=== PATIENT | female | born 1935 | race Caucasian/White ===

== ENCOUNTER 2016-11-29 15:08 | Observation (INO) | payer OTHER ==
--- NOTE | ~2016-11-29 | DS ---
Unit #: [id number] #: [id number] Patient: SIMONE STEEL [id number] [address] [address] [id number] I MR#: [id number] NAME: SIMONE STEEL. ROOM: 313 Age: 80 Sex: F Admission Date: 11/29/2016 : 1935 Discharge Date: Attending Physician: Marie Stanley M.D. Primary Care Physician: Michoacano Mccarthy M.D. DISCHARGE SUMMARY DISCHARGE DIAGNOSES 1. Toxic metabolic encephalopathy. 2. Escherichia coli urinary infection. 3. Sepsis. 4. Poor p.o. intake. 5. Hypertension. 6. Dementia. 7. Hyperlipidemia. 8. Osteoporosis. 9. Arthritis. 10. History of neuropathy. CONSULTATION None. PROCEDURE None. DIAGNOSTIC STUDIES LABORATORY: Urine culture is growing E. coli. Blood cultures negative. WBC 7.6, hemoglobin 13.9, platelets 250,000. Sodium 141, potassium 3.8, creatinine 0.9. Lactic acid 2.1. Urine drug screen negative. CARDIOVASCULAR: EKG: Normal sinus rhythm. ALLERGIES None. DISCHARGE MEDICATIONS 1. Norvasc 10 mg p.o. daily. 2. Aspirin 81 daily. 3. Galantamine 8 mg p.o. b.i.d. 4. Levaquin 500 p.o. daily. 5. Vitamin B12 at 500 mcg p.o. daily. HOSPITALIZATION COURSE An 80 year old admitted because of change in mental status. Change in mental status, secondary to toxic metabolic encephalopathy from urinary tract infection. Currently, she is more arousable. Mildly confused. She does have dementia. Continue with supportive care. Urinary tract infection with E. coli: The patient received IV Rocephin. Cultures are growing E. coli sensitive to Levaquin. The patient will be Unit #: [id number] #: [id number] Patient: SIMONE STEEL discharged on Levaquin for five more days p.o. Poor p.o. intake: Most likely secondary to toxic metabolic encephalopathy. The patient needs encouragement of p.o. intake. The patient should be provided with Ensure three times daily for nutritional supplements. History of dementia: Continue supportive care. DISPOSITION The patient will be discharged to rehab. Dictated by... Leobardo Lemons TD: 12/01/2016 17:11 JOB #: [id number] DISCHARGE SUMMARY X Marie Stanley MD X DISCHARGE SUMMARY
--- NOTE | ~2016-11-29 | EKG ---
PATIENT: SIMONE STEEL UNIT #: [id number] Ventricular Rate: 85 BPM Atrial Rate: 85 BPM P-R Interval: 154 ms QRS Duration: 70 ms Q-T Interval: 420 ms QTC Calculation(Bezet): 499 ms P [place]: 57 degrees Calculated R [place]: -52 degrees Calculated T [place]: -83 degrees Diagnosis Line: Normal sinus rhythm Diagnosis Line: Left axis deviation Diagnosis Line: ST and T wave abnormality, consider inferior Diagnosis Line: ischemia Diagnosis Line: ST and T wave abnormality, consider anterolateral Diagnosis Line: ischemia Diagnosis Line: Abnormal ECG Diagnosis Line: When compared with ECG of 03-MAY-2012 13:05, Diagnosis Line: Significant changes have occurred Diagnosis Line: Confirmed by MARCI PEDERSEN MD ([id number]) on 11/29/2016 Diagnosis Line: 11:26:23 PM INTERPRETING MD: SLAVA LIAO
--- NOTE | ~2016-11-29 | CR72 ---
[facility] A Service of [facility] & [facility] RADIOLOGY TEXT RESULTS PATIENT: SIMONE STEEL LOCATION: [facility] : 34 UNIT #: [id number] AGE: [address]: Kermit Rocha MD SEX: F ORDER DR: [id number] [facility] [address] [place], [place] [address] [id number] E MR#: [id number] Acc #: [id number] NAME: SIMONE STEEL : 1935 SEX: F STUDY DATE/TIME: 11/29/2016 14:54 UNIT: [facility] ROOM: STUDY DESCRIPTION: CR Chest Single View Portable Attending Physician: Kermit Rocha M.D. Ordering Physician: Kermit Rocha M.D. Primary Care Physician: Michoacano Mccarthy M.D. MEDICAL IMAGING REPORT This report is preliminary unless electronic signature is present EXAM AP portable chest, 11/29/2016. INDICATIONS Altered mental status for 3 days. Lethargy. FINDINGS Single portable AP view of the chest compared to 05/03/2012. The heart and mediastinal contours are normal. There is background COPD. There are some calcified granulomas in the right upper lobe. No pleural effusion. IMPRESSION No acute cardiopulmonary findings. Dictated by... Loyd Montiel M.D. THIS IS AN ELECTRONICALLY VERIFIED REPORT Loyd Montiel M.D. at 11/29/2016 6:42 PM YAZAN/hortencia TD: 11/29/2016 16:54 JOB #: [id number] MEDICAL IMAGING REPORT COPY
--- NOTE | ~2016-11-29 | HP ---
Unit #: [id number] #: [id number] Patient: SIMONE STEEL [id number] [address] [place], [place] [address] [id number] I MR#: [id number] NAME: SIMONE STEEL. ROOM: 70004 Age: 80 Sex: F Admission Date: 11/29/2016 : 1935 Attending Physician: Joann May M.D. Primary Care Physician: Michoacano Mccarthy M.D. HISTORY AND PHYSICAL CHIEF COMPLAINT Altered mental status. HISTORY OF PRESENT ILLNESS The patient is an 80-year-old female with a history of hypertension, hyperlipidemia and osteoporosis, brought to the emergency room with the altered mental status. The patient is a poor historian and the history is obtained by speaking to the ER physician and the patient's daughter at the bedside. The patient has decreased oral intake for the last mbfyp-wp-fomw days associated with the disorientation. The patient has been disoriented and confused and agitated for the last oznsw-vl-vnce days. The patient denies any fever, chills or any urinary complaints and further history is limited because the patient is not following the commands and not answering the questions. PAST MEDICAL HISTORY Hypertension, hyperlipidemia, osteoporosis, arthritis, neuropathy, questionable dementia. PAST SURGICAL HISTORY Rotator cuff surgery, back surgery, left knee replacement, right knee replacement, hysterectomy. ALLERGIES No known drug allergies. HOME MEDICATIONS She is on the gabapentin, galantamine, Celexa, vitamin, aspirin, Norvasc, risperidone. SOCIAL HISTORY Denies tobacco, alcohol or any illicit drug abuse; she is and has four children and stays at home with her . REVIEW OF SYMPTOMS Unable to obtain due to patient's altered mental status. FAMILY HISTORY Father was an alcoholic. Mother is 95, living and healthy. PHYSICAL EXAMINATION GENERAL APPEARANCE: On examination the patient is lying on a bed not in acute distress. Unit #: [id number] #: [id number] Patient: SIMONE STEEL VITAL SIGNS: Temperature 99.5, pulse 70, respiratory rate 22, blood pressure 102/90, sating 99% at room air. HEENT: Head atraumatic, normocephalic. Pupils equal, round and reacting to light and accommodation. Extraocular movements are intact. Dry mucous membranes. NECK: Supple. No JVD. LUNGS: Decreased air entry at the bases. No rhonchi. No wheezing. HEART: Regular rate and rhythm. ABDOMEN: Soft, positive bowel sounds. EXTREMITIES: No cyanosis. No clubbing. NEUROLOGIC: Awake and confused, not following commands and no gross focal motor deficit. PSYCHIATRIC: Unable to assess. DIAGNOSTIC STUDIES LABORATORY DATA: Glucose 146, BUN 23, creatinine 1.1, sodium 138, potassium 3.5, chloride 105, bicarb 24 and calcium 9.1, total protein 7.1, total bilirubin 1.3, AST 21, ALT 16, alkaline phosphatase 35 and lactic acid is 2.1, INR is 1, WBC 6.8, hemoglobin 14.2, hematocrit 41.7, platelets 252. Urine tox is negative. UA shows 2+ leukocyte esterase, 1+ protein and 25 to 50 urine RBCs and 50 to 100 urine WBCs and 4+ bacteria. The repeat lactic acid is again 2.1. CARDIOVASCULAR: The EKG shows a normal sinus rhythm with a left axis deviation and the nonspecific ST and T changes. IMAGING: The CT of the head shows no acute intracranial findings, atrophy and small vessel changes, diffuse mucosal thickening in the paranasal sinus. Please correlate for any evidence of sinusitis. Chest x-ray shows no acute cardiopulmonary findings. ASSESSMENT 1. Altered mental status. 2. Urinary tract infection. 3. Sepsis. 4. Poor oral intake. 5. Hypertension. PLAN 1. Plan to admit to the observation with the telemetry. 2. Continue with the IV antibiotic with the Rocephin. 3. Follow with the sepsis protocol. 4. Follow with the urine culture. 5. Repeat the labs again in the morning. 6. Further recommendations will follow as more lab results are available. Dictated by Leobardo Borjas Unit #: [id number] #: [id number] Patient: SIMONE STEEL TD: 11/29/2016 20:18 JOB #: [id number] HISTORY AND PHYSICAL X X HISTORY AND PHYSICAL
--- NOTE | ~2016-11-29 | CT71 ---
[facility] A Service of [facility] RADIOLOGY TEXT RESULTS PATIENT: SIMONE STEEL LOCATION: [facility] : 34 UNIT #: [id number] AGE: [address]: KHUSHI COLEY MD SEX: F ORDER DR: [id number] [id number] [facility]. [place], [place] [address] [id number] E MR#: [id number] Acc #: [id number] NAME: SIMONE STEEL. : 1935 SEX: F STUDY DATE/TIME: 11/29/2016 15:44 UNIT: [facility] ROOM: STUDY DESCRIPTION: CT Head Wo Contrast Attending Physician: Kermit Rocha M.D. Ordering Physician: Kermit Rocha M.D. Primary Care Physician: Michoacano Mccarthy M.D. MEDICAL IMAGING REPORT This report is preliminary unless electronic signature is present EXAM CT head without contrast. DATE OF EXAM 11/29/2016 INDICATION Fever. Confusion. Urinary tract infection. TECHNIQUE CT of the head without contrast. NOTE: This CT exam was performed with one or more of the following radiation dose reduction techniques: automatic exposure control, adjustment of mA and/or kV according to patient size, and iterative reconstruction. COMPARISON MRI brain dated 05/26/2012. FINDINGS There is no acute intracranial hemorrhage, mass lesion, or acute infarct. There is generalized global cerebral atrophy and chronic small vessel changes. No extraaxial collections. No acute osseous abnormalities. There is diffuse mucosal thickening within the ethmoidal air cells and the sphenoid sinuses. There is a small left mastoid effusion. IMPRESSION 1. No acute intracranial findings. 2. Atrophy and chronic small vessel changes. 3. Diffuse mucosal thickening in the paranasal sinuses. Please correlate for any evidence of sinusitis. [facility] A Service of [facility] RADIOLOGY TEXT RESULTS PATIENT: SIMONE STEEL LOCATION: [facility] : 34 UNIT #: [id number] AGE: [address]: KHUSHI COLEY MD SEX: F ORDER DR: Dictated by... Loyd Montiel M.D. THIS IS AN ELECTRONICALLY VERIFIED REPORT Loyd Montiel M.D. at 11/29/2016 8:29 PM YAZAN/saira TD: 11/29/2016 18:52 JOB #: [id number] MEDICAL IMAGING REPORT COPY
[2016-11-29 14:38] LABS: BASOPHIL# 0.1 X10e3 (0-0.3); BASOPHIL% 1.2 % (0-2.5); EOSINOPHIL# 0.2 X10e3 (0-0.7); EOSINOPHIL% 2.6 % (0.0-7.0); HEMATOCRIT 41.7 % (35.0-45.0); HEMOGLOBIN 14.2 gm/dL (12.0-16.0); LYMPHOCYTE# 1.3 X10e3 (1.0-3.5); LYMPHOCYTE% 18.8 % (17.0-45.0); MEAN CELL VOLUME 88.7 FL (83-96); MEAN CORPUSCULAR HEMOGLOBIN 30.2 PG (28-34); MEAN CORPUSCULAR HGB CONC 34.1 g/dL (30-36); MEAN PLATELET VOLUME 9.4 FL (6.5-11.5); MONOCYTE# 0.7 X10e3 (0-1.0); MONOCYTE% 10.1 % (3.0-12.0); NEUTROPHIL# 4.6 X10e3 (1.5-7.1); NEUTROPHIL% 67.3 % (40-75); PLATELET COUNT 252 X10e3 (140-420); RED CELL DISTRIBUTION WIDTH 14.9 % (11.0-15.5); URINE SOURCE CLEAN CATCH; WHITE BLOOD COUNT 6.8 X10e3 (4.0-10.5)
[2016-11-29 14:44] LABS: DIFF IND NO; URINE APPEARANCE CLOUDY; URINE BILIRUBIN NEG (NEG); URINE BLOOD 2+ (NEG); URINE COLOR DK YELLOW; URINE GLUCOSE NEG (NEG); URINE KETONE 1+ (NEG); URINE LEUKOCYTE ESTERASE 2+ (NEG); URINE NITRATE NEG (NEG); URINE PH 5.5 (5-8); URINE PROTEIN 1+ (NEG); URINE SPECIFIC GRAVITY 1.024 (1.003-1.035)
[2016-11-29 14:45] LABS: POC - CKMB 1.7 ng/mL (0.0-7.9); POC - TROPONIN <0.05 ng/mL (<=0.05)
[2016-11-29 14:46] LABS: CULTURE INDICATED? YES; URBCS1 AUWI 25-50 /[HPF] (0-2); URINE BACTERIA AUWI 4+ (NEGATIVE); URINE SQUAMOUS EPITHELIAL CELL NONE SEEN /[HPF]; UWBCS1 AUWI 50-100 (0-5)
[2016-11-29 14:57] LABS: ALBUMIN SERUM 4.4 g/dL (3.5-5.0); BILIRUBIN, DIRECT 0.3 mg/dL (0.0-0.2); BILIRUBIN,TOTAL 1.3 mg/dL (0.2-2.0); BUN/CREATININE RATIO 20.9; CALCIUM SERUM 9.1 mg/dL (8.4-10.2); CREATININE SERUM 1.1 mg/dL (0.6-1.4); GLOM FILT RATE Estimated 50.7 mL/min (>60); POTASSIUM 3.5 mmol/L (3.5-5.1); PROTEIN TOTAL SERUM 7.1 g/dL (6.0-8.3)
[2016-11-29 15:03] LABS: AMPHETAMINE NEG (NEG); BARBITURATES NEG (NEG); BENZODIAZEPINES NEG (NEG); COCAINE NEG (NEG); MARIJUANA NEG (NEG); OPIATES NEG (NEG); TRICYCLIC ANTIDEPRESSANTS NEG (NEG); U METHADONE NEG (NEG)
[~2016-11-29 15:08] MED LIST: ARIXTRA2.5 MG/0.5 INJ; ASPIRIN PO; ASPIRIN81 M1 PO; BONIVA150 MG PO; CALTRATE 600+D PO; DESOWEN60 GM TOP; DITROPAN XL PO; DITROPAN5 MG PO; EC-NAPROSYN500 MG; FLEXERIL10 MG PO; GABAPENTIN300 MG PO; GLUCOSAMINE 1500 MG; GLUCOSAMINE 750 MG; HYDROCHLOROTHIA25 MG PO; LEVOFLOXACIN500 MG PO; LIPITOR; MOBIC PO; MOBIC15 MG PO; MULTI-VITAMIN1 TAB; MULTIVITAMIN1 UDCAP PO; NEURONTIN PO; NORCO 5/325 TAB1 TAB PO; NORVASC10 MG PO; OMEPRAZOLE20 M1 PO; PERCOCET PO; PREMARIN; PREVACID; PRILOSEC PO; SIMVASTATIN40 MG PO; TOPROL XL 50 MG50 M1 PO; TOPROL XL PO; TRIDESILON 0.0515 G2 EXT; VICODIN; ZOCOR PO; ZOFRAN8 MG PO; [UNRECOGNIZED DRUG - OTHER]
[2016-11-29] MEDS ORDERED: RISPERDAL0.5 MG PO (17:51)
[2016-11-29] MEDS ORDERED: NORVASC10 MG PO (17:51)
[2016-11-29] MEDS ORDERED: CELEXA10 M1 PO (17:52)
[2016-11-29] MEDS ORDERED: B-12500 MCG PO (17:52)
[2016-11-29] MEDS ORDERED: ASPIRIN EC81 M1 PO (17:52)
[2016-11-29] MEDS ORDERED: GABAPENTIN300 MG PO (17:53)
[2016-11-29] MEDS ORDERED: GALANTAMINE HBR8 MG PO (17:53)
[2016-11-30 04:00] LABS: BASOPHIL% 0.5 % (0-2.5); EOSINOPHIL# 0.2 X10e3 (0-0.7); HEMATOCRIT 41.1 % (35.0-45.0); HEMOGLOBIN 13.9 gm/dL (12.0-16.0); LYMPHOCYTE# 1.3 X10e3 (1.0-3.5); LYMPHOCYTE% 17.4 % (17.0-45.0); MEAN CELL VOLUME 89.9 FL (83-96); MEAN CORPUSCULAR HEMOGLOBIN 30.4 PG (28-34); MEAN CORPUSCULAR HGB CONC 33.9 g/dL (30-36); MEAN PLATELET VOLUME 9.1 FL (6.5-11.5); MONOCYTE# 0.7 X10e3 (0-1.0); MONOCYTE% 9.8 % (3.0-12.0); NEUTROPHIL# 5.4 X10e3 (1.5-7.1); NEUTROPHIL% 70.3 % (40-75); PLATELET COUNT 250 X10e3 (140-420); RED BLOOD COUNT 4.57 X10e (3.90-5.30); RED CELL DISTRIBUTION WIDTH 14.5 % (11.0-15.5); WHITE BLOOD COUNT 7.6 X10e3 (4.0-10.5)
[2016-11-30 04:23] LABS: BLOOD UREA NITROGEN 19 mg/dL (9-23); BUN/CREATININE RATIO 21.11; CALCIUM SERUM 8.9 mg/dL (8.4-10.2); CARBON DIOXIDE 25 mmol/L (22-31); CHLORIDE 106 mmol/L (100-111); CREATININE SERUM 0.9 mg/dL (0.6-1.4); GLOM FILT RATE Estimated ABOVE60 mL/min (>60); GLUCOSE FASTING 105 mg/dL (70-110); POTASSIUM 3.8 mmol/L (3.5-5.1); SODIUM 141 mmol/L (135-145)
[2016-11-30 04:26] LABS: DIFF IND NO
== END 2016-12-01 20:30 ==
LOC: CED 15:08 → CEDOF 19:14 → C3A PCU 11-30 14:05
PROVIDERS: Emergency Medicine; Internal Medicine
DX: G92 Toxic encephalopathy (principal); N39.0 Urinary tract infection, site not specified; B96.20 Unspecified Escherichia coli [E. coli] as the cause of diseases classified elsewhere; A41.51 Sepsis due to Escherichia coli [E. coli]; I10 Essential (primary) hypertension; F03.90 Unspecified dementia, unspecified severity, without behavioral disturbance, psychotic disturbance, mood disturbance, and anxiety; E78.5 Hyperlipidemia, unspecified; M81.0 Age-related osteoporosis without current pathological fracture; M19.90 Unspecified osteoarthritis, unspecified site; Z79.82 Long term (current) use of aspirin; Z81.1 Family history of alcohol abuse and dependence
CPT/HCPCS: 36415; 51701; 70450; 71010; 80048; 80076; 80307; 81003; 82553; 83605; 84484; 85025; 87040; 87086; 87088; 87186; 93005; 96361; 96365; 96372; 96375; 97163; 97167; 97530; 99285; G0378; G8978-GP; G8979-GP; G8987-GO; G8988-GO; J0696; J1650

== ENCOUNTER 2017-05-27 12:24 | Emergency (ER) | payer OTHER ==
[~2017-05-27] VITALS: Ht 144.8 cm; Wt 56.2 kg
--- NOTE | ~2017-05-27 | CR72 ---
[facility] A Service of [facility] & [facility] RADIOLOGY TEXT RESULTS PATIENT: SIMONE STEEL LOCATION: [facility] : 34 UNIT #: [id number] AGE: [address]: Tremayne Dorsey MD SEX: F ORDER DR: [id number] [facility] [address] [place], [place] [address] [id number] E MR#: [id number] Acc #: [id number] NAME: SIMONE STEEL : 1935 SEX: F STUDY DATE/TIME: 05/27/2017 12:54 UNIT: [facility] ROOM: STUDY DESCRIPTION: CR Chest Single View Portable Attending Physician: Tremayne Dorsey M.D. Ordering Physician: Mateo Demarco M.D. Primary Care Physician: No Primary Care Physician MEDICAL IMAGING REPORT This report is preliminary unless electronic signature is present EXAM Portable chest, 05/27/2017. INDICATIONS Near-syncope today. Hypertension. Shortness of air. FINDINGS AP portable chest compared with 11/29/2016. Cardiac and mediastinal contours are within normal limits. The lungs are clear except for granulomatous calcifications. No pneumothorax is seen. Degenerative disease noted in the spine and right shoulder. IMPRESSION No active disease. Dictated by... Kermit Stratton Jr., M.D. THIS IS AN ELECTRONICALLY VERIFIED REPORT Kermit Stratton Jr., M.D. at 05/29/2017 2:27 PM FORTUNATO/saira TD: 05/27/2017 18:49 JOB #: [id number] MEDICAL IMAGING REPORT Page 1 of 1 COPY
--- NOTE | ~2017-05-27 | EKG ---
PATIENT: SIMONE STEEL UNIT #: [id number] Ventricular Rate: 69 BPM Atrial Rate: 69 BPM P-R Interval: 162 ms QRS Duration: 80 ms Q-T Interval: 408 ms QTC Calculation(Bezet): 437 ms P [place]: 52 degrees Calculated R [place]: -27 degrees Calculated T [place]: 75 degrees Diagnosis Line: Normal sinus rhythm Diagnosis Line: Nonspecific T wave abnormality Diagnosis Line: Abnormal ECG Diagnosis Line: When compared with ECG of 29-NOV-2016 14:35, Diagnosis Line: ST no longer depressed in Inferior leads Diagnosis Line: T wave inversion no longer evident in Inferior Diagnosis Line: leads Diagnosis Line: T wave inversion no longer evident in Diagnosis Line: Anterolateral leads Diagnosis Line: QT has shortened Diagnosis Line: Confirmed by SLAVA LIAO, MARCI ([id number]) on 05/28/2017 Diagnosis Line: 7:08:17 PM INTERPRETING MD: SLAVA LIAO
[~2017-05-27 12:24] MED LIST changes: +ASPIRIN EC81 M1 PO; +B-12500 MCG PO; +CELEXA10 M1 PO; +GALANTAMINE HBR8 MG PO; +RISPERDAL0.5 MG PO
[2017-05-27 13:46] LABS: BASOPHIL% 0.5 % (0-2.5); EOSINOPHIL# 0.1 X10e3 (0-0.7); EOSINOPHIL% 0.7 % (0.0-7.0); HEMOGLOBIN 12.1 gm/dL (12.0-16.0); LYMPHOCYTE# 0.4 X10e3 (1.0-3.5); LYMPHOCYTE% 4.6 % (17.0-45.0); MEAN CELL VOLUME 89.6 FL (83-96); MEAN CORPUSCULAR HGB CONC 33.5 g/dL (30-36); MONOCYTE# 0.8 X10e3 (0-1.0); NEUTROPHIL# 6.8 X10e3 (1.5-7.1); NEUTROPHIL% 84.2 % (40-75); PLATELET COUNT 242 X10e3 (140-420); RED BLOOD COUNT 4.02 X10e (3.90-5.30); RED CELL DISTRIBUTION WIDTH 14.5 % (11.0-15.5); WHITE BLOOD COUNT 8.1 X10e3 (4.0-10.5)
[2017-05-27 14:00] LABS: DIFF IND NO
[2017-05-27 14:11] LABS: POC - CKMB <1.0 ng/mL (0.0-7.9); POC - TROPONIN 0.06 ng/mL (<=0.05)
[2017-05-27 14:16] LABS: BILIRUBIN, DIRECT 0.4 mg/dL (0.0-0.2); BILIRUBIN,INDIRECT 1.1 mg/dL (0.0-0.9); BILIRUBIN,TOTAL 1.5 mg/dL (0.2-2.0); BUN/CREATININE RATIO 12.72; CALCIUM SERUM 9.2 mg/dL (8.4-10.2); CREATININE SERUM 1.1 mg/dL (0.6-1.4); GLOM FILT RATE Estimated 46.7 mL/min (>60); POTASSIUM 4.6 mmol/L (3.5-5.1); PROTEIN TOTAL SERUM 6.6 g/dL (6.0-8.3)
[2017-05-27 14:56] LABS: URINE SOURCE CATH
[2017-05-27 15:03] LABS: URINE APPEARANCE CLEAR; URINE BILIRUBIN NEG (NEG); URINE BLOOD 1+ (NEG); URINE COLOR YELLOW; URINE GLUCOSE NEG (NEG); URINE KETONE NEG (NEG); URINE LEUKOCYTE ESTERASE 1+ (NEG); URINE NITRATE NEG (NEG); URINE PH 6.5 (5-8); URINE PROTEIN NEG (NEG); URINE SPECIFIC GRAVITY 1.007 (1.003-1.035); URINE UROBILINOGEN 0.2 MG/DL (NEG)
[2017-05-27 15:06] LABS: CULTURE INDICATED? YES; URINE BACTERIA AUWI 4+ (NEGATIVE); URINE SQUAMOUS EPITHELIAL CELL MOD /[HPF]
[2017-05-27 16:40] LABS: POC - CKMB <1.0 ng/mL (0.0-7.9); POC - TROPONIN <0.05 ng/mL (<=0.05)
[2017-05-27 19:07] LABS: POC - CKMB 1.1 ng/mL (0.0-7.9); POC - TROPONIN <0.05 ng/mL (<=0.05)
== END 2017-05-27 19:15 | disposition home or self-care (01) ==
LOC: CED 12:24
PROVIDERS: Emergency Medicine
DX: R55 Syncope and collapse (principal); I10 Essential (primary) hypertension; Z90.710 Acquired absence of both cervix and uterus; Z79.899 Other long term (current) drug therapy; Z79.82 Long term (current) use of aspirin
CPT/HCPCS: 36415; 51701; 71010; 80048; 80076; 81003; 82553; 82947; 84484; 85025; 87086; 87088; 87186; 93005; 96360; 99284

== ENCOUNTER 2017-06-29 01:30 | Inpatient (IN) | payer OTHER ==
[~2017-06-29] VITALS: Ht 152.4 cm; Wt 76.0 kg
--- NOTE | ~2017-06-29 | CR83 ---
[facility] A Service of [facility] & [facility] RADIOLOGY TEXT RESULTS PATIENT: SIMONE STEEL LOCATION: [address] : 34 UNIT #: [id number] AGE: [address]: John Sheriff MD SEX: F ORDER DR: [id number] [id number] [facility]. [place], [place] [address] [id number] I MR#: [id number] Acc #: [id number] NAME: SIMONE STEEL. : 1935 SEX: F STUDY DATE/TIME: 07/01/2017 9:09 UNIT: [facility] ROOM: [facility] STUDY DESCRIPTION: CR ERCP Biliary Duct SI Attending Physician: John Sheriff M.D. Ordering Physician: Juan Zavaleta M.D. Primary Care Physician: No Primary Care Physician MEDICAL IMAGING REPORT This report is preliminary unless electronic signature is present EXAM ERCP biliary duct SI. HISTORY Sepsis, CBD obstruction. Stones removed. Sphincterotomy performed. Stent placed. Fluoroscopy time 1.43 minutes. Twelve fluoroscopic spot images. PROCEDURE Intraoperative fluoroscopy provided for Dr. Zavaleta during ERCP. Initial image shows placement of the endoscope and cannulation of the common bile duct. There is injection of contrast material. The endoscopist notes dilatation of the biliary ducts and stones in the duct. Endoscopist notes performance of sphincterotomy. Balloon catheter used to remove stones from CBD. Stones/debris removed from the CBD. Placement of a stent. Final recorded image shows in mildly prominent intrahepatic bile ducts, and in the mildly prominent extrahepatic common bile duct. The stent extends from the mid common bile duct into second portion duodenum. Please see endoscopist report for full procedural details. The visualized bowel gas pattern appears within normal limits. Degenerative changes in the partially visualized spine. Dictated by... Jose E Nunes M.D. THIS IS AN ELECTRONICALLY VERIFIED REPORT Jose E Nunes M.D. at 07/03/2017 2:31 PM LUCIAN/saira TD: 07/01/2017 16:13 [facility] A Service of [facility] & [facility] RADIOLOGY TEXT RESULTS PATIENT: SIMONE STEEL LOCATION: [address] : 34 UNIT #: [id number] AGE: [address]: John Sheriff MD SEX: F ORDER DR: JOB #: [id number] MEDICAL IMAGING REPORT Page 1 of 1 COPY
--- NOTE | ~2017-06-29 | OR ---
Unit #: [id number] #: [id number] Patient: SIMONE STEEL [id number] [address] [address] [id number] I MR#: [id number] NAME: SIMONE STEEL ROOM: [facility] Date of Procedure: 07/01/2017 Admission Date: 06/29/2017 Surgeon: Atul May M.D. : 1935 Attending Physician: John Sheriff M.D. Primary Care Physician: Rachel Primary Care Physician PROCEDURE OPERATIVE NOTE PROCEDURE Left intrajugular hemodialysis catheter placement with ultrasound guidance. PREOP DIAGNOSIS Acute kidney injury with anuria. POSTOP DIAGNOSIS Acute kidney injury and septic shock. PREMEDICATION None except lidocaine topical. COMPLICATION None. DESCRIPTION OF THE PROCEDURE An informed consent was obtained from the patient's daughter after explaining the benefit and risk of this procedure. Patient was prepped and positioned in a proper way, then she was cleaned with chlorhexidine and then a sterile body drape was applied and then, with the ultrasound guidance, a needle was inserted into the left IJ until blood flow was obtained and then a guidewire was inserted and the needle was removed. Then, the skin and soft tissues were dilated with dilators x2. Then, the catheter was inserted over the guidewire and the guidewire was removed. The catheter was flushed and sutured appropriately, then a clean dressing was applied and a stat chest x-ray confirmed placement with no immediate complication. Dictated by... Atul May M.D. EA/giancarlo TD: 07/01/2017 10:43 JOB #: [id number] Unit #: [id number] #: [id number] Patient: SIMONE STEEL PROCEDURE OPERATIVE NOTE Page 1 of 1 X TAUL JEFFRIES MD X PROCEDURE OPERATIVE NOTE
--- NOTE | ~2017-06-29 | CR72 ---
[facility] A Service of [facility] RADIOLOGY TEXT RESULTS PATIENT: SIMONE STEEL LOCATION: [facility] : 34 UNIT #: [id number] AGE: [address]: John Sheriff MD SEX: F ORDER DR: [id number] [facility] [address] [place], [place] [address] [id number] I MR#: [id number] Acc #: [id number] NAME: SIMONE STEEL. : 1935 SEX: F STUDY DATE/TIME: 07/01/2017 08:48 UNIT: [facility] ROOM: [facility] STUDY DESCRIPTION: CR Chest Single View Portable Attending Physician: John Sheriff M.D. Ordering Physician: Brad May M.D. Primary Care Physician: No Primary Care Physician MEDICAL IMAGING REPORT This report is preliminary unless electronic signature is present EXAM Chest portable, 07/01/2017, 0848 hours. CLINICAL HISTORY 81-year-old woman with shortness of air, weakness and recent fever. Shiley catheter placement today. COMPARISON 06/29/2017 FINDINGS Portable upright chest demonstrates low lung volumes with likely stable heart size. There is perihilar vascular crowding. There is increased density at the right lung base likely combination of pleural effusion and consolidation. Atelectasis is favored over pneumonia although pneumonia cannot be excluded. There is trace blunting of the left costophrenic sulcus. There is a left IJ catheter with tip directed rightward in the mid SVC. There is no pneumothorax. IMPRESSION 1. Low lung volume film with persistent right greater than left pleural effusion and right basilar density. Atelectasis is favored over pneumonia, although, right basilar pneumonia cannot be excluded. 2. Left IJ catheter tip terminates in the SVC directed to the right. There is no pneumothorax. Dictated by... Michelle Varela M.D. [facility] A Service of [facility] RADIOLOGY TEXT RESULTS PATIENT: SIMONE STEEL LOCATION: [facility] : 34 UNIT #: [id number] AGE: [address]: John Sheriff MD SEX: F ORDER DR: THIS IS AN ELECTRONICALLY VERIFIED REPORT Michelle Varela M.D. at 07/02/2017 9:15 AM Michi TD: 07/01/2017 14:48 JOB #: [id number] MEDICAL IMAGING REPORT Page 1 of 1 COPY
--- NOTE | ~2017-06-29 | DS ---
Unit #: [id number] #: [id number] Patient: SIMONE STEEL [id number] [facility] [address] [place], [place] [address] [id number] I MR#: [id number] NAME: SIMONE STEEL. ROOM: [facility] Age: 81 Sex: F Admission Date: 06/29/2017 : 1935 Discharge Date: 07/02/2017 Attending Physician: John Sheriff M.D. Primary Care Physician: Rachel Primary Care Physician DISCHARGE SUMMARY SUMMARY DATE OF July 02, 2017. HOSPITAL COURSE An 81-year-old female was admitted to [facility] and treated for septic shock secondary to enterococcal bacteremia and Escherichia coli UTI. Patient also had a dilated common bile duct and acute pancreatitis. Patient also has history of hypertension, hyperlipidemia, neuropathy, and mild dementia. Patient was also treated for pneumonia. Patient was seen by Dr. Indu May in pulmonary consultation, Dr. Zavaleta, Dr. Varner, and [facility] in consultation as well. Unfortunately, patient's condition deteriorated and she was intubated. After discussing with patient's family, it was decided to make patient comfort care as she was on vasopressors and has also developed acute renal failure. Patient peacefully on July 02, 2017. Dictated by... Leobardo Mahan/maggi TD: 07/07/2017 10:07 JOB #: [id number] DISCHARGE SUMMARY Page 1 of 1 X John Sheriff MD X DISCHARGE SUMMARY
--- NOTE | ~2017-06-29 | OR ---
Unit #: [id number] #: [id number] Patient: SIMONE STEEL [id number] [address] [address] [id number] MR#: [id number] NAME: SIMONE STEEL. ROOM: [facility] Date of Procedure: 07/01/2017 Admission Date: 06/29/2017 Surgeon: Atul May M.D. : 1935 Attending Physician: John Sheriff M.D. Primary Care Physician: Rachel Primary Care Physician PROCEDURE OPERATIVE NOTE PROCEDURE Left internal jugular hemodialysis catheter placement with ultrasound guidance. PREOP DIAGNOSIS Septic shock and acute kidney injury. POSTOP DIAGNOSIS Septic shock and acute kidney injury. PREMEDICATION Topical lidocaine. COMPLICATIONS None. DESCRIPTION OF THE PROCEDURE An informed consent was obtained from the patient's daughter after explaining the benefit and risks of this procedure. Patient was prepped and positioned in a proper way. Then, her left neck was cleaned with chlorhexidine. Then, a sterile body drape was applied. Then, with ultrasound guidance, a needle was inserted in the left internal jugular vein until blood flow was obtained. Then, a guidewire was inserted and the needle was removed. Then, 2 dilators were used to create tract for the catheter, which was advanced over the guidewire, and the guidewire was removed. Then, the catheter was flushed appropriately and sutured in place. Clean dressing was applied and STAT chest x-ray confirmed placement with no immediate complications. Dictated by... Atul May M.D. EA/cecelia TD: 07/03/2017 07:33 JOB #: [id number] Unit #: [id number] #: [id number] Patient: SIMONE STEEL PROCEDURE OPERATIVE NOTE Page 1 of 1 X ATUL JEFFRIES MD X PROCEDURE OPERATIVE NOTE
--- NOTE | ~2017-06-29 | CR71 ---
[facility] A Service of [facility] & [facility] RADIOLOGY TEXT RESULTS PATIENT: SIMONE STEEL LOCATION: [address] : 34 UNIT #: [id number] AGE: [address]: John Sheriff MD SEX: F ORDER DR: [id number] [place] [id number] [facility]. [place], [place] [address] [id number] I MR#: [id number] Acc #: [id number] NAME: SIMONE STEEL. : 1935 SEX: F STUDY DATE/TIME: 07/01/2017 11:08 UNIT: [facility] ROOM: [facility] STUDY DESCRIPTION: CR Chest Single View Attending Physician: John Sheriff M.D. Ordering Physician: Juan Zavaleta M.D. Primary Care Physician: No Primary Care Physician MEDICAL IMAGING REPORT This report is preliminary unless electronic signature is present EXAM Portable chest. HISTORY Post ERCP shortness of air. Endotracheal tube placement. COMPARISON 07/01/2017 FINDINGS Portable view of the chest demonstrates endotracheal tube in apparent low position. The leisa is difficult to visualize but based on landmarks it is felt to be directed either at the leisa or into the right mainstem bronchus. Recommend pull back about 2.5 cm and repeat radiograph. There is a left-sided volume loss and overall decreased lung volumes. Cardiomegaly. Mild vascular congestion. No significant effusions. Double-lumen catheter or Shiley catheter seen from the left neck approach. Distal tip near the brachiocephalic SVC junction. No pneumothorax. Chronic changes of the right shoulder suggest longstanding rotator cuff tear. NOTE Results called to the ICU and discussed with the patient's nurse with instructions to pull back the tube and repeat radiograph. Dictated by... Angelina Beach M.D. THIS IS AN ELECTRONICALLY VERIFIED REPORT Angelina Beach M.D. at 07/02/2017 2:34 PM Kyung TD: 07/01/2017 17:18 [facility] A Service of [facility] & [facility] RADIOLOGY TEXT RESULTS PATIENT: SIMONE STEEL LOCATION: [address] : 34 UNIT #: [id number] AGE: [address]: John Sheriff MD SEX: F ORDER DR: JOB #: [id number] MEDICAL IMAGING REPORT Page 1 of 1 COPY
--- NOTE | ~2017-06-29 | US6 ---
[facility] A Service of [facility] & [facility] RADIOLOGY TEXT RESULTS PATIENT: SIMONE STEEL LOCATION: [address] : 34 UNIT #: [id number] AGE: [address]: John Sheriff MD SEX: F ORDER DR: [id number] [facility] [address] [facility]. [place], [place] [address] [id number] I MR#: [id number] Acc #: [id number] NAME: SIMONE STEEL. : 1935 SEX: F STUDY DATE/TIME: 06/29/2017 11:54 UNIT: [facility] ROOM: [facility] STUDY DESCRIPTION: US Abdominal Limited Attending Physician: John Sheriff M.D. Ordering Physician: Brad May M.D. Primary Care Physician: Primary Care Physician No MEDICAL IMAGING REPORT This report is preliminary unless electronic signature is present EXAM Ultrasound abdomen limited, 06/29/2019 HISTORY Evaluate for cholecystitis. Nausea x1 week, diabetes, hypertension, hyperlipidemia. FINDINGS Real-time ultrasonography of the right upper quadrant performed. The visualized portions of pancreas are unremarkable but much of pancreas obscured by bowel gas artifact. Liver partially obscured by artifact from lungs. The portal vein appears patent with normal direction of flow. The visualized hepatic parenchyma shows no focal abnormality. The right kidney measures 9.32 cm in greatest length. There is no hydronephrosis or nephrolithiasis. No cystic or solid mass lesion and no perinephric fluid collection. The gallbladder is within physiologic limits of volume. No discrete gallstones are seen. No definite gallbladder wall thickening. Gallbladder wall measures approximately 2.8 mm in thickness. There is no intrahepatic ductal dilatation. The extrahepatic duct is prominent at 9 mm. No pericholecystic fluid. IMPRESSION 1. Limited examination. Liver is poorly visualized due to artifact from lungs. The visualized hepatic parenchyma is unremarkable. 2. Gallbladder is within physiologic limits of volume and there is no gallstone, pericholecystic fluid or gallbladder wall thickening seen. 3. There is no indication of intrahepatic biliary ductal dilatation but the extrahepatic duct is prominent at 9 mm in diameter. No obstructing process is seen but the full extent of the common bile duct is not visualized. Correlate with the patient's clinical presentation and laboratory data. If further imaging of the biliary tree is clinically warranted, consider CT examination or MRCP. 4. Right kidney unremarkable. [facility] A Service of [facility] RADIOLOGY TEXT RESULTS PATIENT: SIMONE STEEL LOCATION: [address] : 34 UNIT #: [id number] AGE: [address]: John Sheriff MD SEX: F ORDER DR: 5. Pancreas poorly visualized due to bowel gas artifact. If the pancreas is of ongoing clinical concern, it can be further assessed with CT. Dictated by... Jose E Nunes M.D. THIS IS AN ELECTRONICALLY VERIFIED REPORT Jose E Nunes M.D. at 06/30/2017 4:57 PM LUCIAN/jayne TD: 06/30/2017 08:00 JOB #: [id number] MEDICAL IMAGING REPORT Page 1 of 1 COPY
--- NOTE | ~2017-06-29 | CO ---
Unit #: [id number] #: [id number] Patient: SIMONE STEEL [id number] [address] [address] [id number] I MR#: [id number] NAME: SIMONE STEEL ROOM: [facility] Age: 81 Sex: F Admission Date: 06/29/2017 : 1935 Attending Physician: John Sheriff M.D. Primary Care Physician: Primary Care Physician No Consultation Date: 06/29/2017 CONSULTATION REPORT BRIEF HISTORY The patient is an 81-year-old lady, who presents with a 2-day history of nausea, vomiting, abdominal pain, just not feeling well. The patient does live independently. She is requesting food as I do my evaluation. She states her pain is diffuse, nonradiating, and constant. PAST MEDICAL HISTORY She has hypertension, hyperlipidemia, neuropathy, mild dementia. PAST SURGICAL HISTORY She has had a hysterectomy. MEDICATIONS Gabapentin, Celexa, vitamins, Norvasc, aspirin, and Risperdal. SOCIAL HISTORY Does live independent. No alcohol. No smoking. FAMILY HISTORY Negative for GI malignancy. REVIEW OF SYSTEMS No cardiopulmonary complaints at this time. Else, 10 systems reviewed and negative. PHYSICAL EXAMINATION GENERAL: She is awake, alert, answering questions. VITAL SIGNS: Current systolic blood pressure 120, respirations are 15. HEENT: Unremarkable. NECK: Supple. No JVD. Trachea midline. LUNGS: Clear to auscultation. Bilateral breath sounds symmetric. CARDIOVASCULAR: Regular rate and rhythm. ABDOMEN: Soft. It is diffusely tender, but no rebound. No masses. No point tenderness. EXTREMITIES: No clubbing, cyanosis, or edema. DIAGNOSTIC STUDIES LABORATORY RESULTS: Show a white count of 9.4, hemoglobin 11.5. Chemistries show a bilirubin of 6.0, alkaline phosphatase of 700. Lipase 2788. Lactic acid is 7.0. ASSESSMENT Pancreatitis. Possible biliary etiology. Unit #: [id number] #: [id number] Patient: SIMONE STEEL PLAN Recommend IV fluids, antibiotics, bowel rest. We will check CT scan. Do not see acute abdominal process at this stage. Dictated by... Jose E Olivares M.D. YG/keyanna TD: 06/29/2017 16:31 JOB #: [id number] CONSULTATION REPORT Page 1 of 1 X Jose E Olivares MD CONSULTATION REPORT
--- NOTE | ~2017-06-29 | CO ---
Unit #: [id number] #: [id number] Patient: SIMONE STEEL [id number] [address] [address] [id number] I MR#: [id number] NAME: SIMONE STEEL. ROOM: [facility] Age: 81 Sex: F Admission Date: 06/29/2017 : 1935 Attending Physician: John Sheriff M.D. Primary Care Physician: Rachel Primary Care Physician Consultation Date: 06/29/2017 CONSULTATION REPORT REASON FOR CONSULT ICU management. HISTORY OF PRESENT ILLNESS This is a very pleasant 81-year-old female with past medical history significant for hypertension, hyperlipidemia, arthritis, neuropathy who presented to the emergency room with nausea, vomiting, abdominal pain and not feeling well. Patient lives independent at home, but she is unable to ambulate. She uses a walker and crutches to move around. For the last few days patient has been feeling progressively weak, nauseated with recurrent vomiting and abdominal pain. Upon presentation to the emergency room, patient was found to be hypotensive with lactic acid of 7. PAST MEDICAL HISTORY 1. Hypertension. 2. Hyperlipidemia. 3. Osteoporosis. 4. Arthritis. 5. Neuropathy. 6. Mild dementia. PAST SURGICAL HISTORY 1. Rotator cuff surgery. 2. Back surgery. 3. Left knee replacement. 4. Right knee replacement. 5. Hysterectomy. ALLERGIES No known drug allergies. HOME MEDICATIONS 1. Gabapentin. 2. Celexa. 3. Vitamin. 4. Aspirin. 5. Norvasc. 6. Risperdal. SOCIAL HISTORY Patient lives independent. No history of alcohol, drug abuse or smoking. Unit #: [id number] #: [id number] Patient: SIMONE STEEL REVIEW OF SYSTEMS Nausea, vomiting and abdominal pain. FAMILY HISTORY Father was alcoholic. PHYSICAL EXAM GENERAL: The patient is ill appearing. VITAL SIGNS: Blood pressure 105/62, respiratory rate 17, O2 saturation 98% on 2 liters nasal cannula. HEENT: Atraumatic, normocephalic. PERRLA, EOMI. NECK: Supple. No JVD. No lymphadenopathy. CHEST: Decreased breath sounds bilaterally, mainly at the bases. HEART: S1, S2 with mild systolic murmur. ABDOMEN: Soft but tender to deep palpation. No focal weakness, however. SKIN: No rashes. 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 No focal motor/sensory deficits. EXTREMITIES: Trace edema but no cyanosis. LABS AND OTHER TESTS LABS: Creatinine 3.7, sodium 126, total bili 6, lipase 2,788. White blood count 9.4, hemoglobin 11.5. ASSESSMENT 1. Septic shock secondary to, likely, cholecystitis. 2. Severe pancreatitis. 3. Rule out cholecystitis. 4. Acute kidney injury. 5. Hyponatremia. 6. Chronic anemia. 7. History of hypertension. 8. History of hyperlipidemia. 9. Neuropathy. PLAN 1. Patient is very critical. She will be monitored in ICU. She is full code at this point, but her risk of complication is very high given her age and multiple co-morbidities and current condition. 2. Continue IV hydration and change to bicarb drip. 3. IV antibiotics pending culture. 4. Patient will need right upper quadrant ultrasound to rule out cholecystitis and gallbladder stones. She will likely also need a CT abdomen/pelvis at some point to evaluate her pancreatitis. 5. Bilateral renal ultrasound and urine lytes, urine creatinine. Will keep patient NPO and continue IV hydration. 6. Supportive medicine. 7. DVT and GI prophylaxis. NOTE: Critical care time spent on this patient was 36 minutes. Dictated by... Atul May M.D. EA/cecelia TD: 06/29/2017 12:57 Unit #: [id number] #: [id number] Patient: SIMONE STEEL JOB #: [id number] CONSULTATION REPORT Page 1 of 1 X ATUL JEFFRIES MD CONSULTATION REPORT
--- NOTE | ~2017-06-29 | HP ---
Unit #: [id number] #: [id number] Patient: SIMONE STEEL [id number] [facility] [address]. [place], [place] [address] [id number] I MR#: [id number] NAME: SIMONE STEEL ROOM: [facility] Age: 81 Sex: F Admission Date: 06/29/2017 : 1935 Attending Physician: John Sheriff M.D. Primary Care Physician: No Primary Care Physician HISTORY AND PHYSICAL DIAGNOSES ON ADMISSION 1. Pneumonia. 2. UTI. HISTORY OF PRESENT ILLNESS Tkjirx-ygj-vcuhs-old female presented to [facility] with altered mental status. Patient was found on floor by her , and EMS were called, and she was brought to the hospital. Currently patient is lying in bed in ICU. She is pleasantly confused to time. She states that she does not exactly remember but had nausea and abdominal pain and was not feeling well. Patient's states that patient complained of weakness and almost passed out. Therefore, he called EMS. Patient denies having any chest pain, tightness or heaviness. She is complaining of dizziness and generalized weakness. There is no fever, chills or cough. Patient denies any blood in stools, urine or any headache or visual problems. Patient is confused to time and is not ideal historian. Some of the history was obtained with the patient's , who is also very frail. Unable to obtain complete review of systems secondary to patient's overall condition and confusion. PAST MEDICAL HISTORY Hypertension, hyperlipidemia, osteoporosis, degenerative joint disease, mild dementia, neuropathy. Patient was admitted in the hospital in November 2016. PAST SURGICAL HISTORY Back surgery, left knee replacement, right knee replacement, hysterectomy, rotator cuff surgery. ALLERGIES There are no known drug allergies. HOME MEDICATIONS Medications are Risperdal, Norvasc, aspirin, vitamin B12, Celexa, gabapentin and Exelon. SOCIAL HISTORY Patient is . Lives with her . She denies smoking or drinking. FAMILY HISTORY As per records, patient's father was alcoholic. Unit #: [id number] #: [id number] Patient: SIMONE STEEL PHYSICAL EXAMINATION GENERAL: Patient is lying in bed and is not in any obvious acute distress. VITAL SIGNS: Her vital signs reveal a temperature of 98.8, pulse is 123 per minute, respiratory rate was 16 per minute, blood pressure is 86/40. Pulse ox is 94%. HEENT: Examination revealed no conjunctival congestion. Sclera is nonicteric. NECK: Neck is supple. Trachea is central. RESPIRATORY: Examination revealed decreased breath sounds bilaterally. There are no wheezes or crackles. HEART: Heart is tachycardic. S1, S2. ABDOMEN: Abdomen is soft. There is mild tenderness present. There is no rebound tenderness, rigidity or guarding. EXTREMITIES: Extremities reveal trace pedal edema. SKIN: Skin is warm and dry. DIAGNOSTIC STUDIES LABS ON ADMISSION: The patient's ABG revealed pH of 7.36, pCO2 was 26.3, pO2 was 72.5, FIO2 was 28. The patient's creatinine was 3.7, sodium was 126, potassium was 3.0, CO2 level was 17, AST was 202, ALT was 169, alkaline phosphatase was 717. WBC was 9.4, hemoglobin was 11.5, platelet count was 147. Amylase was 316, lipase was 2,788. Urinalysis revealed 2 to 5 WBCs. Blood cultures reveal 2 out of 2 sets growing gram-negative rods. Ammonia level was less than 9. Lactic acid level was 7.5. IMAGING: Chest x-ray revealed probable mild right basilar atelectasis or infiltrate. CARDIOVASCULAR: The patient's EKG revealed sinus tachycardia with premature atrial complexes. ASSESSMENT AND PLAN Zttakl-uxo-ebdmd-old patient presented to [facility] with confusion. Details are as per admission H and P. 1. Septic shock. Patient has been seen by Dr. Indu May in consultation who started patient on IV Flagyl. Patient is also on vasopressors. 2. Acute pancreatitis. Patient will be having a CT abdomen. I will request surgery consultation to rule out cholecystitis. 3. Acute kidney injury. Dr. Arboleda has been consulted. It could be secondary to acute tubular necrosis secondary to the hypotension. Patient is currently on IV fluids. 4. Hypotension. Patient's blood pressure medications are on hold. 5. History of dementia. Patient is on Exelon at home. 6. Depression. Patient is on Celexa at home. 7. I have discussed the plan in detail with the patient and her . I also discussed with the patient's son who is aware of patient's critical condition at this point. 8. Please make note that goals of care were discussed with the patient's son, who will bring her living will to see what her wishes are. At present patient is full code. Dictated by Leobardo Mahan/cecelia Unit #: [id number] #: [id number] Patient: SIMONE STEEL TD: 06/29/2017 16:22 JOB #: [id number] CC: Brad May M.D. HISTORY AND PHYSICAL Page 1 of 1 X John Sheriff MD X HISTORY AND PHYSICAL
--- NOTE | ~2017-06-29 | CO ---
Unit #: [id number] #: [id number] Patient: SIMONE JIMENEZ [id number] [address] [place], [place] [address] [id number] MR#: [id number] NAME: SIMONE JIMENEZ. ROOM: [facility] Age: 81 Sex: F Admission Date: 06/29/2017 : 1935 Attending Physician: John Sheriff M.D. Primary Care Physician: Primary Care Physician No Consultation Date: 06/30/2017 CONSULTATION REPORT REASON FOR CONSULTATION Dilated common bile duct and the patient with biliary pancreatitis. HISTORY OF PRESENT ILLNESS Ms. Jimenez is a very pleasant 81-year-old white female, who is admitted with altered mental status. The patient was found on the floor by and was brought to the emergency room. She is quite confused. She also complained of abdominal pain along with nausea and vomiting. She apparently passed out at home. There is no history of chest tightness or pain. She does complain of generalized weakness. There is no history of any overt GI bleed. Most of the history was obtained from the patient's . The patient herself is confused, frail, and quite petite. PAST MEDICAL HISTORY Significant for history of Alzheimer dementia, as well as degenerative joint disease, osteoporosis, hypertension, hyperlipidemia, peripheral neuropathy. PAST SURGICAL HISTORY Included bilateral knee replacements, hysterectomy, back surgery, and rotator cuff surgery. MEDICATIONS At home included Risperdal, Norvasc, aspirin, vitamin B12, Celexa, gabapentin, Exelon. ALLERGIES She has no known drug allergies. SOCIAL HISTORY She is . Lives with her . Does not smoke or drink alcohol. FAMILY HISTORY None of colon, pancreatic cancer, or liver disease. REVIEW OF SYSTEMS Detailed review of organ systems is not possible due to the fact the patient's mental confusion. PHYSICAL EXAMINATION GENERAL: She is awake and comfortable. VITAL SIGNS: Temperature is 97.4, pulse is 116, her blood pressure is 98/41 and she is on norepinephrine infusion, respiratory rate is 25. She weighs only 130 pounds. It is close to her baseline weight though. Unit #: [id number] #: [id number] Patient: SIMONE JIMENEZ HEENT: She has mild pallor. There being tinge of icterus. No lymphadenopathy or peripheral edema. CARDIOVASCULAR: Confirms sinus tachycardia. LUNGS: Auscultation over the lungs was bilateral diminished symmetric air entry. ABDOMEN: Soft, but diffusely tender. It is not distended. Diffusely tender, but there is no guarding. Hernia sites are normal. Bowel sounds are also normal. DIAGNOSTIC STUDIES LABORATORY RESULTS: Shows a white count leukocytosis of 43,000 and left shift; hemoglobin was 9.1, it was 12.1 couple of days ago. In addition, the patient has severe thrombocytopenia, platelet count being 54, her baseline was about 150 before. INR is 1.1. Serum chemistry shows a BUN and creatinine of 40 and 3.8 and blood glucose is 147. Sodium is 125, potassium was 3 yesterday and 4.2 today. Her albumin is 2.4 and declining. Total bilirubin is 6.1, the most of which is direct. AST and ALT are 1189 and 518 with a rising trend alkaline phosphatase is 375. Amylase and lipase are 316 and 2788. CK is 2600. Lactic acid is 5.6, it was 7.5 yesterday. The patient is going Enterobacter in the blood cultures. IMAGING STUDIES: CT scan of the abdomen and pelvis done earlier today shows normal pancreatic duct, but common bile duct is dilated 2.4 cm with multiple stones in the ampulla. CLINICAL IMPRESSION The patient with biliary pancreatitis and now presenting with hypotension, leukemoid reaction thrombocytopenia, and renal failure suggestive of septic shock as well as acute kidney injury and Enterobacter bacteremia. An emergent endoscopic retrograde cholangiopancreatography is indicated and will be scheduled at the earliest tomorrow. The pros and cons of procedure, potential risks, and complications were discussed with the patient's family and they were explained that the patient is a high-risk candidate no matter of what and possibilities of worsening pancreatitis, perforation, bleeding were explained to the patient's family. Thank you very much for asking me to see this pleasant woman. I appreciate the consult. Dictated by... Leobardo Bobby/keyanna TD: 07/01/2017 17:35 JOB #: [id number] CC: John Sheriff M.D. Unit #: [id number] #: [id number] Patient: SIMONE JIMENEZ CONSULTATION REPORT Page 1 of 1 X Juan Zavaleta MD CONSULTATION REPORT
--- NOTE | ~2017-06-29 | CT4 ---
[facility] A Service of [facility] & [facility] RADIOLOGY TEXT RESULTS PATIENT: SIMONE STEEL LOCATION: [address] : 34 UNIT #: [id number] AGE: [address]: Jhon Sheriff MD SEX: F ORDER DR: [id number] [facility] [address] [facility]. [place], [place] [address] [id number] I MR#: [id number] Acc #: [id number] NAME: SIMONE STEEL : 1935 SEX: F STUDY DATE/TIME: 06/30/2017 10:33 UNIT: [facility] ROOM: [facility] STUDY DESCRIPTION: CT Abd and Pelv Wo Cont Attending Physician: John Sheriff M.D. Ordering Physician: Brad May M.D. Primary Care Physician: No Primary Care Physician MEDICAL IMAGING REPORT This report is preliminary unless electronic signature is present EXAM CT abdomen and pelvis without contrast 06/30/2017 10:33 hours. HISTORY 81-year-old woman with acute renal failure, 06/29/2017, dilated bile duct seen on prior ultrasound, possible acute pancreatitis. Abnormal lab values. Patient was found on floor 06/29/2017. Fever since 06/29/2017. COMPARISON Chest x-ray 06/29/2017, ultrasound abdomen, ultrasound kidneys, 06/29/2017. COMPARISON CT abdomen and pelvis 04/09/2011. TECHNIQUE Helical noncontrasted images were obtained from the lung bases through the pubic symphysis without oral or intravenous contrast. Sagittal and coronal reconstructions were performed. Total exam DLP 762 mGy-cm. This CT exam was performed with one or more of the following radiation dose reduction techniques: automatic exposure control, adjustment of mA and/or kV according to patient size, and iterative reconstruction. FINDINGS Images through the lung bases demonstrate bilateral dependent pleural effusions with bibasilar airspace changes likely atelectasis. There is no pericardial fluid. Images through the abdomen demonstrate a diffusely mottled appearance to the liver with bile duct dilatation, gallbladder distension without definite gallstones. The common bile duct is dilated to diameter 2.4 cm with a stone or stones seen at the ampulla. The larger density measures 11 mm. This is likely the source of the dilated common bile duct. The [facility] A Service of [facility] RADIOLOGY TEXT RESULTS PATIENT: SIMONE STEEL LOCATION: [facility] CICCU2-04 : 34 UNIT #: [id number] AGE: [address]: John Sheriff MD SEX: F ORDER DR: pancreas and pancreatic duct appear normal. There is trace stranding in the sub hepatic space in the right greater than left pericolic gutter likely trace ascites. The spleen is normal in density. The adrenal glands are normal. The kidneys have a normal noncontrasted appearance. There is no renal or ureteral calculus. Patient does have a right femoral catheter terminating in the right external iliac vein. There is no distension of the stomach or small bowel. The colon is nondistended with uncomplicated diverticula present. The presence of bowel wall thickening in the ascending colon cannot be excluded. This may appear thickened due to the small amount of adjacent ascites. Attention to this on follow up after treatment for acute choledocholithiasis is recommended. CT pelvis demonstrates a Bowie catheter in the bladder with a small amount of air in the bladder likely iatrogenic. The uterus is absent. I believe both ovaries are present without mass. There is multilevel degenerative change in the spine. No compression fracture is seen. The last image of this exam demonstrates an ovoid area of low attenuation in the medial hip flexor muscles measuring 5.4 x 2 cm. This is not seen on the comparison CT of 04/09/2011. This could represent a low-density hematoma, however, intramuscular abscess could appear similarly. This lies well below and appears separate from the area of the femoral catheter insertion site. There is mild diffuse subcutaneous edema suggesting anasarca perhaps related to the acute renal failure. IMPRESSION 1. Moderate dependent bilateral pleural effusions with bibasilar atelectasis. 2. There is a 11 mm stone in the common bile duct at the head of the pancreas with an adjacent tiny stone likely a second stone. This results in severe dilatation of the common bile duct and intrahepatic bile ducts. Common bile duct measures 2.4 cm, previously less than 1 cm. The pancreas and pancreatic duct are normal. 3. The gallbladder is distended with some pericholecystic fluid but no definite stones. 4. There is a small amount of ascites around the gallbladder, liver, pericolic gutters. 5. Diverticulosis of the distal colon without evidence of diverticulitis. 6. Question is raised of a segmental area of wall thickening in the ascending colon which could be real but could also appear thickened due to the small amount of adjacent ascites. Attention to this on follow up is recommended. 7. Noncontrasted images of the kidneys demonstrate no mass, stone or obstruction. No definite atrophy. [facility] A Service of [facility] RADIOLOGY TEXT RESULTS PATIENT: SIMONE STEEL LOCATION: [facility] : 34 UNIT #: [id number] AGE: [address]: John Sheriff MD SEX: F ORDER DR: 8. Bowie catheter in the bladder. 9. There is an ovoid 5.4 x 2 cm low-density area in the medial hip flexor muscles that is partially imaged on the last image of this exam and not seen on the comparison CT from 2010. This is nonspecific. It could represent a low-density hematoma or abscess. 10. Mild diffuse anasarca likely related to the acute renal failure. Dictated by... Michelle Varela M.D. THIS IS AN ELECTRONICALLY VERIFIED REPORT Michelle Varela M.D. at 06/30/2017 2:26 PM CRISTEL/jayda TD: 06/30/2017 11:31 JOB #: [id number] MEDICAL IMAGING REPORT Page 1 of 1 COPY
--- NOTE | ~2017-06-29 | CO ---
Unit #: [id number] #: [id number] Patient: SIMONE JIMENEZ [id number] [address] [address] [id number] I MR#: [id number] NAME: SIMONE JIMENEZ. ROOM: [facility] Age: 81 Sex: F Admission Date: 06/29/2017 : 1935 Attending Physician: John Sheriff M.D. Primary Care Physician: Primary Care Physician No Consultation Date: 06/30/2017 CONSULTATION REPORT REASON FOR CONSULTATION Acute kidney injury. HISTORY OF PRESENT ILLNESS Ms. Jimenez was admitted on 06/29/2017 for altered mental status. She was brought in by EMS. Not much history was obtained at that time, other than it appeared she had a urinary tract infection and her acute kidney injury. Her creatinine was 3.7. Her blood pressure was low, so she was placed in the ICU and started on IV fluids. At the time of this consultation, the patient is not intubated and is on some pressor. PAST MEDICAL HISTORY Hypertension, hyperlipidemia, osteoporosis, mild dementia. PAST SURGICAL HISTORY Rotator cuff surgery, back surgery, left knee replacement, right knee replacement. HOME MEDICATIONS Include gabapentin, Celexa, aspirin, Norvasc, and Risperdal. SOCIAL HISTORY The patient is . Lives with her . She performs all her IADLs. She does not smoke or drink. Her daughter is a monkey breeder. REVIEW OF SYSTEMS Unobtainable due to confusion. FAMILY HISTORY Negative for kidney disease. PHYSICAL EXAMINATION GENERAL: The patient is seen in the intensive care unit. The patient is eyes-open and tracking. She is following simple commands. She is denying pain. VITAL SIGNS: Temperature is 97.8. Heart rate is 110. Blood pressure is 105/58. NECK: Without lymphadenopathy, JVD, or thyromegaly. HEENT: Eyes are without icterus or drainage. CHEST: Poor effort, but no crackles. CARDIAC: S1 and S2. Tachycardia. ABDOMEN: Mildly tender, soft, positive bowel sounds that are hypoactive. EXTREMITIES: No cyanosis, clubbing, or edema. Unit #: [id number] #: [id number] Patient: SIMONE JIMENEZ DIAGNOSTIC STUDIES LABORATORY RESULTS: On 06/30/2017, pH was 7.35, pCO2 was 32, pO2 was 74, bicarbonate was 18. On 06/30/2017, sodium 127, chloride 98, bicarbonate 16, BUN 39, creatinine 3.7, calcium 6.3, albumin 2.4, lipase 1958, amylase 278. Urinalysis showed specific gravity of 1.017, pH of 5.5, protein 3+, 3+ blood. White blood cell count 43,000, hemoglobin 9.1, platelet count 54. IMAGING STUDIES: Renal ultrasound done 06/29/2017 showed no hydronephrosis and normal sized kidneys. Ultrasound of the abdomen showed no intrahepatic biliary ductal dilatation, but extrahepatic duct is prominent at 9 mm in diameter. ASSESSMENT AND PLAN 1. Acute kidney injury, likely due to acute tubular necrosis from septic shock. It appears that she has cholecystitis and pancreatitis as the source. She is oliguric and has metabolic acidosis, but she is compensating fairly well. 2. History of hypertension now with hypotension, on pressor. 3. Hyponatremia due to free water excretion deficit. 4. Urinary tract infection. PLAN The patient has no obstruction, but rather probably has acute tubular necrosis. We will switch her over to a bicarb drip. Hopefully, IV antibiotics will help gain control of her severe sepsis. She may end up needing continuous renal replacement therapy. We will work closely with the shoe parts molder on this. I did call Opal, her daughter, and let her know the patient was critically ill with acute renal failure that may require dialysis. Thank you very much for allowing me to see Ms. Jimenez in consultation. We will follow closely with you. Dictated by... Tonya Varner M.D. BRANDO/keyanna TD: 07/03/2017 03:22 JOB #: [id number] CONSULTATION REPORT Page 1 of 1 X Tonya Varner MD X CONSULTATION REPORT
--- NOTE | ~2017-06-29 | CR72 ---
[facility] A Service of [facility] RADIOLOGY TEXT RESULTS PATIENT: SIMONE STEEL LOCATION: [place] [address] : 34 UNIT #: [id number] AGE: [address]: John Sheriff MD SEX: F ORDER DR: [id number] [facility] [address]. [place], [place] [address] [id number] I MR#: [id number] Acc #: [id number] NAME: SIMONE STEEL. : 1935 SEX: F STUDY DATE/TIME: 06/29/2017 1:40 UNIT: [facility] ROOM: [facility] STUDY DESCRIPTION: CR Chest Single View Portable Attending Physician: John Sheriff M.D. Ordering Physician: Mateo Demarco M.D. Primary Care Physician: No Primary Care Physician MEDICAL IMAGING REPORT This report is preliminary unless electronic signature is present EXAM Portable chest DATE 06/29/2017 at 01:40 HISTORY 81-year-old female with shortness of breath and fever tonight. COMPARISON AP portable chest 05/27/2017. FINDINGS Dense right basilar atelectasis or infiltrates present with small right pleural effusion. There is mild asymmetric elevation right hemidiaphragm. Left lung appears clear. Heart size appears borderline enlarged which may be accentuated by the low-volume inspiration and portable technique. No visible pneumothorax or acute osseous abnormality. IMPRESSION 1. Probable mild right basilar atelectasis/infiltrate with trace right pleural effusion. 2. Mild elevation of the right hemidiaphragm, similar to prior. Dictated by... Mindy Kohli M.D. THIS IS AN ELECTRONICALLY VERIFIED REPORT Mindy Kohli M.D. at 06/30/2017 9:50 AM LLH/giancarlo TD: 06/29/2017 11:03 JOB #: [id number] [facility] A Service of [facility] RADIOLOGY TEXT RESULTS PATIENT: ISMONE STEEL [address] [birth year] UNIT #: [id number] AGE: [address]: John Sheriff MD SEX: F ORDER DR: MEDICAL IMAGING REPORT Page 1 of 1 COPY
--- NOTE | ~2017-06-29 | US77 ---
[facility] A Service of [facility] & [facility] RADIOLOGY TEXT RESULTS PATIENT: SIMONE STEEL LOCATION: [address] : 34 UNIT #: [id number] AGE: [address]: John Sheriff MD SEX: F ORDER DR: [id number] [facility] [address] [facility]. [place], [place] [address] [id number] I MR#: [id number] Acc #: [id number] NAME: SIMONE STEEL. : 1935 SEX: F STUDY DATE/TIME: 06/29/2017 12:03 UNIT: [facility] ROOM: [facility] STUDY DESCRIPTION: US Kidney Bilateral Complete Attending Physician: John Sheriff M.D. Ordering Physician: Brad May M.D. Primary Care Physician: No Primary Care Physician MEDICAL IMAGING REPORT This report is preliminary unless electronic signature is present EXAM Bilateral renal ultrasound. INDICATIONS Elevated BUN and creatinine. Acute kidney insufficiency. Creatinine 3.7. FINDINGS Right kidney is 10.4 cm in length. There is no mass, cyst, or hydronephrosis. The left kidney is about 8.7 cm and also appears normal. The bladder is flat. IMPRESSION Normal bilateral renal ultrasound. Dictated by... Cachorro Gardiner M.D. THIS IS AN ELECTRONICALLY VERIFIED REPORT Cachorro Gardiner M.D. at 06/30/2017 4:33 PM MEET/rayshawn TD: 06/30/2017 07:06 JOB #: [id number] MEDICAL IMAGING REPORT Page 1 of 1 COPY
--- NOTE | ~2017-06-29 | OR ---
Unit #: [id number] #: [id number] Patient: SIMONE STEEL [id number] [address] [address] [id number] I MR#: [id number] NAME: SIMONE STEEL ROOM: [facility] Date of Procedure: 07/01/2017 Admission Date: 06/29/2017 Surgeon: Juan Zavaleta M.D. : 1935 Attending Physician: John Sheriff M.D. Primary Care Physician: Primary Care Physician No OPERATIVE REPORT PRIMARY CARE PHYSICIAN The patient does not have any PCP. PREOPERATIVE DIAGNOSES The patient was admitted with sepsis with hypotension, renal failure, and respiratory failure. She is currently on vasopressors to maintain her blood pressure, which is 80 systolic. She does have elevated abnormal LFTs and dilated common bile duct consistent with biliary sepsis from cholangitis, possibly stone disease. PROCEDURES PERFORMED 1. Endoscopic retrograde cholangiopancreatography and sphincterotomy. 2. Endoscopic retrograde cholangiopancreatography and stone and debris extraction. 3. Endoscopic retrograde cholangiopancreatography and biliary stent placement. 4. Preliminary upper gastrointestinal endoscopy was performed. POSTOPERATIVE DIAGNOSES 1. The patient had a large clot covering the major ampulla and papillary area. This was removed using a biopsy forceps. 2. The underlying papillary orifice was eroded indicating passage of common bile duct stone. 3. Endoscopic retrograde cholangiopancreatography showed dilated distal common bile duct with filling defects and decompressed proximal biliary tree. After a sphincterotomy, the common bile duct was swept with a 9 to 12 mm retrieval balloon followed by 12 to 15 mm retrieval balloon up to 14 mm. Debris as well as pus and stone fragments were delivered in the duodenum. A 10-Armenian 5 cm biliary stent was then deployed. RECOMMENDATIONS We will monitor the patient's LFTs. The patient will be extubated and will be transferred back to the unit. SEDATION USED General anesthesia was used in the main OR. DESCRIPTION OF PROCEDURE Following detailed explanation of potential risks and complications of an upper endoscopy and ERCP namely perforation, bleeding, and complications related to sedation, the patient was brought to the main OR and laid in the left semiprone position. A preliminary upper GI endoscopy was Unit #: [id number] #: [id number] Patient: SIMONE STEEL performed that revealed presence of a large clot covering the major ampulla and papillary area. This was removed using biopsy forceps. A lateral viewing duodenoscope was then advanced through the oral cavity into the esophagus and advanced into the stomach. Pylorus was intubated in the usual fashion. The scope was advanced into deep descending duodenum. Upon shortening the scope, major papillary and ampullary area was visualized en face. The ampullary orifice found to be eroded with clots in blood and bile coming through it. The common bile duct was easily cannulated and contrast cholangiogram showed multiple filling defects in the distal CBD. A sphincterotomy was performed up to about 12 mm. The duct was swept with a 9 to 12 mm balloon followed by a 12 to 15 mm balloon 3 to 4 times. Biliary debris, stones, and pus as well as clots were delivered. A 10-Armenian 5 cm biliary stent was deployed. Excellent biliary drainage was established. The scope was then withdrawn. The patient returned to the recovery area. She tolerated the procedure without any postprocedure complications. Dictated by... Leobardo Bobby/keyanna TD: 07/01/2017 12:15 JOB #: [id number] CC: John Sheriff M.D. OPERATIVE REPORT Page 1 of 1 X Juan Zavaleta MD X PROCEDURE OPERATIVE NOTE
--- NOTE | ~2017-06-29 | EKG ---
PATIENT: SIMONE STEEL UNIT #: [id number] Ventricular Rate: 122 BPM Atrial Rate: 122 BPM P-R Interval: 176 ms QRS Duration: 72 ms Q-T Interval: 338 ms QTC Calculation(Bezet): 481 ms P [place]: 44 degrees Calculated R [place]: -31 degrees Calculated T [place]: 98 degrees Diagnosis Line: Sinus tachycardia with Premature atrial complexes Diagnosis Line: Left axis deviation Diagnosis Line: Low voltage QRS Diagnosis Line: Nonspecific ST and T wave abnormality Diagnosis Line: Abnormal ECG Diagnosis Line: When compared with ECG of 27-MAY-2017 12:50, Diagnosis Line: Premature atrial complexes are now Present Diagnosis Line: Vent. rate has increased BY 53 BPM Diagnosis Line: Nonspecific T wave abnormality no longer evident Diagnosis Line: in Anterior leads Diagnosis Line: Confirmed by ALLA POLLACK MD ([id number]) on Diagnosis Line: 06/29/2017 8:43:34 AM INTERPRETING MD: JAKI LIAO
[2017-06-29 03:23] LABS: POC - CKMB 8.9 ng/mL (0.0-7.9); POC - TROPONIN 0.34 ng/mL (<=0.05)
[2017-06-29 03:39] LABS: BASOPHIL% 0.4 % (0-2.5); DIFF IND NO; EOSINOPHIL# 0.1 X10e3 (0-0.7); EOSINOPHIL% 0.6 % (0.0-7.0); HEMATOCRIT 33.7 % (35.0-45.0); HEMOGLOBIN 11.5 gm/dL (12.0-16.0); LYMPHOCYTE# 0.2 X10e3 (1.0-3.5); LYMPHOCYTE% 2.4 % (17.0-45.0); MEAN CELL VOLUME 88.7 FL (83-96); MEAN CORPUSCULAR HEMOGLOBIN 30.2 PG (28-34); MEAN PLATELET VOLUME 10.4 FL (6.5-11.5); MONOCYTE# 0.1 X10e3 (0-1.0); MONOCYTE% 0.8 % (3.0-12.0); NEUTROPHIL% 95.8 % (40-75); PLATELET COUNT 147 X10e3 (140-420); RED CELL DISTRIBUTION WIDTH 15.4 % (11.0-15.5); WHITE BLOOD COUNT 9.4 X10e3 (4.0-10.5)
[2017-06-29 04:00] LABS: URINE SOURCE CATH
[2017-06-29 04:02] LABS: INR 1.1
[2017-06-29 04:10] LABS: URINE APPEARANCE CLOUDY; URINE BLOOD 3+ (NEG); URINE COLOR DK YELLOW; URINE GLUCOSE NEG (NEG); URINE KETONE NEG (NEG); URINE LEUKOCYTE ESTERASE 2+ (NEG); URINE NITRATE NEG (NEG); URINE PH 5.5 (5-8); URINE PROTEIN 3+ (NEG); URINE SPECIFIC GRAVITY 1.017 (1.003-1.035)
[2017-06-29 04:14] LABS: CULTURE INDICATED? YES; URINE BACTERIA AUWI 4+ (NEGATIVE); URINE SQUAMOUS EPITHELIAL CELL NONE SEEN /[HPF]; UWBCS1 AUWI 25-50 (0-5)
[2017-06-29 04:30] LABS: ALBUMIN SERUM 3.1 g/dL (3.5-5.0); BILIRUBIN, DIRECT 3.8 mg/dL (0.0-0.2); BILIRUBIN,INDIRECT 2.2 mg/dL (0.0-0.9); BUN/CREATININE RATIO 10.81; CALCIUM SERUM 7.9 mg/dL (8.4-10.2); CREATININE SERUM 3.7 mg/dL (0.6-1.4); GLOM FILT RATE Estimated 10.8 mL/min (>60); MAGNESIUM 1.8 mg/dL (1.6-3.0); PHOSPHOROUS 1.3 mg/dL (2.5-4.6); PROTEIN TOTAL SERUM 6.1 g/dL (6.0-8.3)
[2017-06-29 04:41] LABS: URINE BILIRUBIN POS (NEG)
[2017-06-29 05:05] LABS: ARTERIAL BLD GAS O2 SATURATION 94.7 % (90.0-100.0); ARTERIAL BLOOD GAS ALLEN TEST NORMAL; ARTERIAL BLOOD GAS ART SITE RIGHT RADIAL; ARTERIAL BLOOD GAS CARBOXY HB 0.5 %sat (0.0-9.0); ARTERIAL BLOOD GAS DELIVERY NASAL CANNULA; ARTERIAL BLOOD GAS HCO3 14.9 mmol/L; ARTERIAL BLOOD GAS MET HB 0.7 %sat (0.0-2.0); ARTERIAL BLOOD GAS PCO2 26.3 mmHg (35.0-45.0); ARTERIAL BLOOD GAS PO2 72.5 mmHg (80.0-100); ARTERIAL BLOOD GAS pH 7.361 (7.350-7.450); ARTERIAL DRAW? YES
[2017-06-29 07:48] LABS: POC - CKMB 7.3 ng/mL (0.0-7.9); POC - TROPONIN 0.16 ng/mL (<=0.05)
[2017-06-29 21:59] LABS: SODIUM URINE RANDOM 64 mmol/L
[2017-06-29 22:17] LABS: OSMOLALITY,URINE 280 mOsmo/kg (250-900)
[2017-06-30 05:31] LABS: BASOPHIL# 0.1 X10e3 (0-0.3); BASOPHIL% 0.1 % (0-2.5); EOSINOPHIL# 6.4 X10e3 (0-0.7); EOSINOPHIL% 14.9 % (0.0-7.0); HEMATOCRIT 26.8 % (35.0-45.0); LYMPHOCYTE# 0.7 X10e3 (1.0-3.5); LYMPHOCYTE% 1.5 % (17.0-45.0); MEAN CELL VOLUME 88.9 FL (83-96); MEAN CORPUSCULAR HEMOGLOBIN 30.1 PG (28-34); MEAN CORPUSCULAR HGB CONC 33.8 g/dL (30-36); MEAN PLATELET VOLUME 10.2 FL (6.5-11.5); MONOCYTE# 0.9 X10e3 (0-1.0); MONOCYTE% 2.1 % (3.0-12.0); NEUTROPHIL# 35.2 X10e3 (1.5-7.1); NEUTROPHIL% 81.4 % (40-75); RED BLOOD COUNT 3.01 X10e (3.90-5.30)
[2017-06-30 05:50] LABS: HEMOGLOBIN 9.1 gm/dL (12.0-16.0); WHITE BLOOD COUNT 43.2 X10e3 (4.0-10.5)
[2017-06-30 05:51] LABS: PLATELET COUNT 54 X10e3 (140-420)
[2017-06-30 05:53] LABS: DIFF IND YES
[2017-06-30 06:28] LABS: ALBUMIN SERUM 2.4 g/dL (3.5-5.0); BILIRUBIN,TOTAL 6.1 mg/dL (0.2-2.0); BUN/CREATININE RATIO 10.54; CALCIUM SERUM 6.3 mg/dL (8.4-10.2); CREATININE SERUM 3.7 mg/dL (0.6-1.4); GLOM FILT RATE Estimated 10.8 mL/min (>60); MAGNESIUM 1.5 mg/dL (1.6-3.0); PHOSPHOROUS 2.6 mg/dL (2.5-4.6); POTASSIUM 4.2 mmol/L (3.5-5.1); PROTEIN TOTAL SERUM 4.9 g/dL (6.0-8.3)
[2017-06-30 06:32] LABS: VACUOLIZATION SL
[2017-06-30 06:33] LABS: BURR CELLS PRESENT
[2017-06-30 06:34] LABS: ANISOCYTOSIS SL
[2017-06-30 07:56] LABS: PLATELET ESTIMATE DECREASED (NORMAL)
[2017-06-30 11:55] LABS: ARTERIAL BLD GAS O2 SATURATION 94.5 % (90.0-100.0); ARTERIAL BLOOD GAS CARBOXY HB 0.4 %sat (0.0-9.0); ARTERIAL BLOOD GAS HCO3 18.1 mmol/L; ARTERIAL BLOOD GAS MET HB 0.8 %sat (0.0-2.0); ARTERIAL BLOOD GAS PCO2 32.6 mmHg (35.0-45.0); ARTERIAL BLOOD GAS PO2 74.5 mmHg (80.0-100); ARTERIAL BLOOD GAS pH 7.352 (7.350-7.450); ARTERIAL DRAW? YES
[2017-06-30 11:56] LABS: ARTERIAL BLOOD GAS ART SITE RIGHT RADIAL; ARTERIAL BLOOD GAS DELIVERY NASAL CANNULA
[2017-06-30 12:26] LABS: BUN/CREATININE RATIO 10.26; CREATININE SERUM 3.8 mg/dL (0.6-1.4); GLOM FILT RATE Estimated 10.4 mL/min (>60); POTASSIUM 4.2 mmol/L (3.5-5.1)
[2017-06-30 16:31] LABS: ARTERIAL BLD GAS O2 SATURATION 94.1 % (90.0-100.0); ARTERIAL BLOOD GAS CARBOXY HB 0.4 %sat (0.0-9.0); ARTERIAL BLOOD GAS HCO3 19.2 mmol/L; ARTERIAL BLOOD GAS MET HB 0.9 %sat (0.0-2.0); ARTERIAL BLOOD GAS PCO2 31.9 mmHg (35.0-45.0); ARTERIAL BLOOD GAS pH 7.387 (7.350-7.450)
[2017-06-30 16:32] LABS: ARTERIAL BLOOD GAS ART SITE RIGHT RADIAL; ARTERIAL BLOOD GAS DELIVERY NASAL CANNULA; ARTERIAL DRAW? YES
[2017-06-30 17:17] LABS: BUN/CREATININE RATIO 10.26; CREATININE SERUM 3.8 mg/dL (0.6-1.4); GLOM FILT RATE Estimated 10.4 mL/min (>60); POTASSIUM 4.1 mmol/L (3.5-5.1)
[2017-06-30 17:28] LABS: CALCIUM SERUM 5.7 mg/dL (8.4-10.2)
[2017-07-01 06:04] LABS: BASOPHIL# 0.1 X10e3 (0-0.3); BASOPHIL% 0.2 % (0-2.5); EOSINOPHIL# 2.7 X10e3 (0-0.7); EOSINOPHIL% 5.3 % (0.0-7.0); HEMATOCRIT 24.4 % (35.0-45.0); HEMOGLOBIN 8.1 gm/dL (12.0-16.0); LYMPHOCYTE# 0.8 X10e3 (1.0-3.5); LYMPHOCYTE% 1.6 % (17.0-45.0); MEAN CELL VOLUME 88.4 FL (83-96); MEAN CORPUSCULAR HEMOGLOBIN 29.2 PG (28-34); MEAN CORPUSCULAR HGB CONC 33.1 g/dL (30-36); MEAN PLATELET VOLUME 10.7 FL (6.5-11.5); MONOCYTE# 1.1 X10e3 (0-1.0); MONOCYTE% 2.3 % (3.0-12.0); NEUTROPHIL# 45.8 X10e3 (1.5-7.1); NEUTROPHIL% 90.6 % (40-75); RED BLOOD COUNT 2.76 X10e (3.90-5.30)
[2017-07-01 06:25] LABS: ALBUMIN SERUM 1.9 g/dL (3.5-5.0); BILIRUBIN,TOTAL 6.1 mg/dL (0.2-2.0); BUN/CREATININE RATIO 10.76; CREATININE SERUM 3.9 mg/dL (0.6-1.4); GLOM FILT RATE Estimated 10.1 mL/min (>60); MAGNESIUM 1.4 mg/dL (1.6-3.0); PHOSPHOROUS 1.8 mg/dL (2.5-4.6); POTASSIUM 4.3 mmol/L (3.5-5.1); PROTEIN TOTAL SERUM 3.8 g/dL (6.0-8.3)
[2017-07-01 06:33] LABS: CALCIUM SERUM 5.7 mg/dL (8.4-10.2)
[2017-07-01 06:50] LABS: WHITE BLOOD COUNT 50.6 X10e3 (4.0-10.5)
[2017-07-01 06:51] LABS: PLATELET COUNT 38 X10e3 (140-420)
[2017-07-01 06:52] LABS: DIFF IND NO
[2017-07-01 16:45] LABS: ARTERIAL BLD GAS O2 SATURATION 96.3 % (90.0-100.0); ARTERIAL BLOOD GAS CARBOXY HB 0.2 %sat (0.0-9.0); ARTERIAL BLOOD GAS HCO3 16.9 mmol/L; ARTERIAL BLOOD GAS MET HB 1.1 %sat (0.0-2.0); ARTERIAL BLOOD GAS PCO2 47.4 mmHg (35.0-45.0)
[2017-07-01 17:05] LABS: ARTERIAL BLOOD GAS ART SITE ARTERIAL LINE; ARTERIAL BLOOD GAS DELIVERY VENT; ARTERIAL BLOOD GAS VENT MODE AC; ARTERIAL DRAW? YES
[2017-07-01 19:34] LABS: BUN/CREATININE RATIO 10.58; CALCIUM SERUM 6.5 mg/dL (8.4-10.2); CREATININE SERUM 1.7 mg/dL (0.6-1.4); GLOM FILT RATE Estimated 27.6 mL/min (>60); PHOSPHOROUS 3.2 mg/dL (2.5-4.6); POTASSIUM 4.2 mmol/L (3.5-5.1)
[2017-07-02 00:54] LABS: BUN/CREATININE RATIO 8.88; CALCIUM SERUM 6.7 mg/dL (8.4-10.2); CREATININE SERUM 0.9 mg/dL (0.6-1.4); GLOM FILT RATE Estimated 59.6 mL/min (>60); MAGNESIUM 1.8 mg/dL (1.6-3.0); PHOSPHOROUS 1.6 mg/dL (2.5-4.6); POTASSIUM 4.1 mmol/L (3.5-5.1)
[2017-07-02 04:51] LABS: ARTERIAL BLD GAS O2 SATURATION 97.3 % (90.0-100.0); ARTERIAL BLOOD GAS CARBOXY HB 0.2 %sat (0.0-9.0); ARTERIAL BLOOD GAS HCO3 14.7 mmol/L; ARTERIAL BLOOD GAS MET HB 1.7 %sat (0.0-2.0); ARTERIAL BLOOD GAS PCO2 29.3 mmHg (35.0-45.0); ARTERIAL BLOOD GAS pH 7.309 (7.350-7.450)
[2017-07-02 04:53] LABS: ARTERIAL BLOOD GAS ART SITE ARTERIAL LINE; ARTERIAL DRAW? YES
[2017-07-02 04:54] LABS: ARTERIAL BLOOD GAS DELIVERY VENT; ARTERIAL BLOOD GAS VENT MODE AC
[2017-07-02 07:49] LABS: GLOM FILT RATE Estimated 52.4 mL/min (>60); MAGNESIUM 2.2 mg/dL (1.6-3.0); PHOSPHOROUS 7.5 mg/dL (2.5-4.6)
[2017-07-02 07:50] LABS: POTASSIUM 7.3 mmol/L (3.5-5.1)
== END 2017-07-02 12:30 | disposition expired | DRG 871 ==
LOC: CED 01:30 → CEDOF 05:45 → CICCU2 05:45 → CED 06:12 → CEDOF 06:12 → CED 08:13 → CEDOF 08:13 → CICCU2 08:46 → CEDOF 08:46 → CICCU2 08:46
PROVIDERS: Emergency Medicine; Internal Medicine; Internal Medicine Gastroenterology; Internal Medicine Nephrology; Internal Medicine Pulmonary Disease
PROC: 05H333Z Insertion of Infusion Device into Right Innominate Vein, Percutaneous Approach (ICD-10-PCS; 2017-06-29)
PROC: B54MZZA Ultrasonography of Right Upper Extremity Veins, Guidance (ICD-10-PCS; 2017-06-29)
PROC: 0FC98ZZ Extirpation of Matter from Common Bile Duct, Via Natural or Artificial Opening Endoscopic (ICD-10-PCS; 2017-07-01)
PROC: 0F798DZ Dilation of Common Bile Duct with Intraluminal Device, Via Natural or Artificial Opening Endoscopic (ICD-10-PCS; 2017-07-01)
PROC: 03HB33Z Insertion of Infusion Device into Right Radial Artery, Percutaneous Approach (ICD-10-PCS; 2017-07-01)
PROC: 0BH17EZ Insertion of Endotracheal Airway into Trachea, Via Natural or Artificial Opening (ICD-10-PCS; 2017-07-01)
PROC: 0F9C8ZZ Drainage of Ampulla of Vater, Via Natural or Artificial Opening Endoscopic (ICD-10-PCS; 2017-07-01)
PROC: 30233J1 Transfusion of Nonautologous Serum Albumin into Peripheral Vein, Percutaneous Approach (ICD-10-PCS; principal; 2017-07-01 09:00)
PROC: 5A1935Z Respiratory Ventilation, Less than 24 Consecutive Hours (ICD-10-PCS; 2017-07-01 09:00)
PROC: 05HN33Z Insertion of Infusion Device into Left Internal Jugular Vein, Percutaneous Approach (ICD-10-PCS; 2017-07-01 09:00)
PROC: B544ZZA Ultrasonography of Left Jugular Veins, Guidance (ICD-10-PCS; 2017-07-01 09:00)
DX: A41.9 Sepsis, unspecified organism (principal); R65.21 Severe sepsis with septic shock; N17.9 Acute kidney failure, unspecified; G92 Toxic encephalopathy; E87.2 Acidosis; K85.10 Biliary acute pancreatitis without necrosis or infection; D69.6 Thrombocytopenia, unspecified; G62.9 Polyneuropathy, unspecified; I48.91 Unspecified atrial fibrillation; E87.1 Hypo-osmolality and hyponatremia; I10 Essential (primary) hypertension; N39.0 Urinary tract infection, site not specified; G30.9 Alzheimer's disease, unspecified; F02.80 Dementia in other diseases classified elsewhere, unspecified severity, without behavioral disturbance, psychotic disturbance, mood disturbance, and anxiety; F32.9 Major depressive disorder, single episode, unspecified; E78.5 Hyperlipidemia, unspecified; M81.0 Age-related osteoporosis without current pathological fracture; Z96.653 Presence of artificial knee joint, bilateral; Z90.710 Acquired absence of both cervix and uterus; Z79.82 Long term (current) use of aspirin; L23.7 Allergic contact dermatitis due to plants, except food; R54 Age-related physical debility; Z66 Do not resuscitate; K80.50 Calculus of bile duct without cholangitis or cholecystitis without obstruction; I50.9 Heart failure, unspecified; I46.9 Cardiac arrest, cause unspecified
CPT/HCPCS: 36600; 70450; 71010; 74176; 74328; 76705; 76770; 80048; 80053; 80076; 81003; 82140; 82150; 82550; 82553; 82803; 82947; 83605; 83690; 83735; 83935; 84100; 84300; 84484; 85025; 85610; 85730; 87040; 87077; 87086; 87088; 87186; 87340; 90945; 93005; 94002; 94640; 94760; C9113; J0282; J0456; J0610; J0692; J0696; J1250; J1644; J1650; J1720; J1940; J2370; J2405; J2543; J3260; J3370; J3475; J7060; P9045; P9047